=== PATIENT | female | born 1950 | race Caucasian/White ===

== ENCOUNTER 2021-02-21 15:59 | Emergency (ER) | payer MEDICARE, MEDICAID, SELFPAY ==
[2021-02-21 16:03] VITALS: BP 130/80; PULSE 87; RESP 20; TEMP 36.2; O2SAT 100; BMI 56.7
--- NOTE | 2021-02-21 16:15 | DI.RAD.S_ITS ---
PROCEDURE: XR SHOULDER RT MIN 2V INDICATIONS: pain. fell out of bed 12/27/20 TECHNIQUE: 3 views of the shoulder were acquired. COMPARISON: None. FINDINGS: Bones: No fractures or dislocations. No suspicious bony lesions. Visualized ribs appear intact. Mild periarticular osteophyte formation at the acromioclavicular and glenohumeral joints. Soft tissues: No suspicious soft tissue calcifications. IMPRESSION: Osteoarthritis. No acute fracture. No osseous lesion. If symptoms and/or clinical suspicion for pathology persist, further assessment with repeat, or advanced imaging (e.g., CT, MRI, or bone scan) may be helpful for further assessment. Dictated by: Francisco J Neil M.D. on 02/21/2021 at 16:26 Approved by: Francisco J Neil M.D. on 02/21/2021 at 16:26
--- NOTE | 2021-02-21 18:50 | ED.UPPEXIN ---
HPI - Extremity Injury (Upper) <Dev Romano PA-C - Last Filed: 02/21/21 20:04> General Chief Complaint: Extremity Injury, Upper Stated Complaint: RIGHT SHOULDER PAIN Time Seen by Provider: 02/21/21 18:50 Source: patient Mode of arrival: Family Vehicle Limitations: no limitations History of Present Illness HPI narrative: Josefa presents today with chief complaint of right shoulder pain that started 2 months ago when she had a fall out of her bed. She reports that she was getting out of her bed and her right foot got stuck in the sheets. She fell forward onto her rocking chair and ground. Her arm got stuck on the seat of the rocking chair and she fell all the way to the ground which yanked her shoulder up. She has been having significant pain and inability to do any overhead movements since this occurred. She denies any previous injuries to the area. She denies any chest pain, joint swelling, numbness or tingling in the arms, rash or any other acute concerns or complaints at this time. Related Data Allergies Allergy/AdvReac Type Severity Reaction Status Date / Time etodolac Allergy Intermediate Swelling Verified 02/21/21 16:14 of Lip/Tongue/Throat lisinopril AdvReac Cough Verified 02/21/21 16:14 Review of Systems <Dev Romano PA-C - Last Filed: 02/21/21 20:04> Review of Systems Narrative: As per HPI Patient History <Dev Romano PA-C - Last Filed: 02/21/21 20:04> Social History Smoking Status: Never smoker Smoking Status: Never smoker alcohol intake frequency: holidays/special occasions only Substance Use Type: does not use Exam <BRENDA Marcelo Last Filed: 02/21/21 20:04> Narrative Exam Narrative: Exam Narrative: Const General: cooperative, healthy appearing, comfortable, no acute distress, well developed and well groomed Nutritional Appearance: Elevated BMI Orientation: alert and oriented x3 HENMT Head: normal to inspection and atraumatic Ears: hearing grossly normal bilaterally Nose: external nose normal and nares normal Face and sinus: normal facial exam Neck Neck: normal visual inspection and supple Resp Effort & Inspection: normal respiratory effort, able to speak in complete sentences, no audible wheezes, not labored, no nasal flaring and no respiratory distress Neuro General: alert, oriented x3, gait normal, tone normal and moves all extremities Cognition: normal cognition Speech: speech normal Gait: normal gait Extremities Upper extremities exposed. Decreased range of motion of right shoulder limited to no overhead movements. She has full strength of the elbows/wrists bilaterally. No significant bony tenderness appreciated. No obvious soft tissue abnormalities noted. Radial pulses are equal bilaterally. Normal sensation in upper extremities. Psych Appearance: grossly normal and well kempt Mental Status: mental status grossly normal Speech and Movement: speech and movement normal Mood: congruent mood Affect: normal affect Initial Vital Signs Initial Vital Signs: Vital Signs Temperature 97.2 F L 02/21/21 16:03 Pulse Rate 87 02/21/21 16:03 Respiratory Rate 20 02/21/21 16:03 Blood Pressure 130/80 02/21/21 16:03 Pulse Oximetry 100 02/21/21 16:03 <Josephine Ponce DO - Last Filed: 02/27/21 00:36> Initial Vital Signs Initial Vital Signs: Vital Signs Temperature 97.2 F L 02/21/21 16:03 Pulse Rate 87 02/21/21 16:03 Respiratory Rate 20 02/21/21 16:03 Blood Pressure 130/80 02/21/21 16:03 Pulse Oximetry 100 02/21/21 16:03 Course <Dev Romano PA-C - Last Filed: 02/21/21 20:04> Orders Ordered: ED Orders 02/21/21 16:15 XR shoulder RT min 2V Stat Vital Signs Vital signs: Vital Signs - 8 hr 02/21/21 16:03 02/21/21 19:17 Temperature 97.2 F L Pulse Rate 87 86 Respiratory Rate 20 20 Blood Pressure 130/80 141/76 H Pulse Oximetry 100 97 <DO Archana Griffith Last Filed: 02/27/21 00:36> Orders Ordered: ED Orders 02/21/21 16:15 XR shoulder RT min 2V Stat Vital Signs Vital signs: Vital Signs - 8 hr 02/21/21 16:03 02/21/21 19:17 Temperature 97.2 F L Pulse Rate 87 86 Respiratory Rate 20 20 Blood Pressure 130/80 141/76 H Pulse Oximetry 100 97 MDM - Extremity Injury (Upper) <BRENDA Marcelo Last Filed: 02/21/21 20:04> MDM Narrative Medical decision making narrative: Patient has normal x-rays of the right shoulder. She has normal strength of bilateral elbows and wrists. No significant bony tenderness. I am concerned that she tore a ligament in her shoulder. I considered DVT of the upper extremity but there is no obvious physical examination evidence to suggest this. She also does not have any significant risk factors to suggest that this is taking place. Recommend follow-up with PCP with likely MRI needed. ER return precautions were discussed with the patient. Patient verbalizes understanding and agrees to plan and has no further concerns at this time. Thank you A [id number] system was used with the dictation of this note. Please disregard any spelling or grammatical errors. Discharge Plan Departure Patient Disposition: Home Clinical Impression: Chronic pain in right shoulder Instructions: DI for Shoulder Sprain Activity Restrictions/Additional Instructions: It was very nice to meet you this evening. Your x-ray is reassuring. However, I am concerned that you may have torn 1 of your ligaments in your shoulder. This can be diagnosed with an MRI. I do not think that this needs to take place here in the emergency department at this time so please follow-up with your primary care provider to be evaluated for this. You may also benefit from physical therapy to help improve strength in your right shoulder. Thank you Dev Romano PA-C <Josephine Ponce, DO - Last Filed: 02/27/21 00:36> Cosign ED Attending Ibeth Attestation: I was immediately available in the department for consultation. Documentation has been reviewed.
[2021-02-21 19:17] VITALS: BP 141/76; PULSE 86; RESP 20; O2SAT 97
== END 2021-02-21 19:22 | disposition home or self-care (01) ==
PROVIDERS: Emergency Provider Physician Assistant
DX: M25.511 Pain in right shoulder (principal)
CPT/HCPCS: 73030; 99283

== ENCOUNTER → 2021-04-28 12:39 | Outpatient (CLI) | payer MEDICARE, MEDICAID, SELFPAY ==
--- NOTE | 2021-04-28 | DI.MRI.S_ITS ---
PROCEDURE: MR SHOULDER RT WO CON INDICATIONS: Strain of unspecified muscle, fascia and tendon at TECHNIQUE: Noncontrast oblique coronal T2 fast spin echo with fat saturation, oblique sagittal T1 spin echo and T2 fast spin echo with fat saturation, axial T1 spin echo and T2 fast spin echo with fat saturation through the shoulder. COMPARISON: [facility], CR, XR SHOULDER RT MIN 2V, 02/21/2021, 16:12. FINDINGS: Image quality: Excellent. Rotator cuff: There is high-grade intrasubstance and likely bursal sided tearing of the supraspinatus tendon at the distal insertion with possible perforation of articular sided fibers. Findings are superimposed on severe tendinosis. There is mild to moderate infraspinatus tendinosis. The teres minor tendon is intact. There is full-thickness tearing of the subscapularis tendon with proximal retraction of the tendon stump by up to 1.8 cm. Some scarring in situ may be present. There is severe fatty infiltration of the subscapularis muscle. The remaining rotator cuff musculature is normal in bulk. Bones and bursae: No acute trabecular bone injury. Mild subchondral cystic changes are seen at the posterosuperior humeral head and the greater tuberosity near the rotator cuff tendon insertions. Moderate degenerative changes are seen at the acromioclavicular joint with marginal osteophyte formation and subchondral edema. A moderate subacromial/subdeltoid bursal effusion is present with moderate synovial hypertrophy. There is a small glenohumeral effusion. Fluid is also seen in the subcoracoid bursa. Capsule and soft tissues: No displaced labral tear is seen. There is a medial subluxation of the proximal biceps long head tendon, located anterior to the medial humeral head, with superimposed tendinosis and likely partial intrasubstance tearing. There is partial effacement of the fat in the rotator interval. The glenohumeral ligaments are grossly intact. IMPRESSION: 1. High-grade intrasubstance and bursal sided tearing of the supraspinatus tendon at the distal insertion with suspected full-thickness perforation. Findings are superimposed on severe tendinosis. 2. Full-thickness tearing of the subscapularis tendon from its distal insertion with proximal tendon retraction measuring up to 1.8 cm. There is severe fatty infiltration of the subscapularis muscle. 3. Medial subluxation of the biceps long head tendon with tendinosis and suspected partial intrasubstance tearing. 4. Moderate acromioclavicular osteoarthrosis. 5. Moderate subacromial/subdeltoid bursal effusion/bursitis with moderate bursal thickening and synovial hypertrophy. A glenohumeral effusion is also seen communicating with the subcoracoid bursa. Dictated by: Miller Hernandez M.D. on 04/28/2021 at 15:59 Approved by: Miller Hernandez M.D. on 04/28/2021 at 16:08
== END ==
PROVIDERS: Referring Provider Orthopaedic Surgery; Visit Provider Orthopaedic Surgery
DX: S46.011A Strain of muscle(s) and tendon(s) of the rotator cuff of right shoulder, initial encounter (principal); M19.011 Primary osteoarthritis, right shoulder; M75.51 Bursitis of right shoulder; X58.XXXA Exposure to other specified factors, initial encounter
CPT/HCPCS: 73221

== ENCOUNTER → 2021-06-30 11:10 | Outpatient (CLI) | payer MEDICARE, SELFPAY ==
[2021-06-30 13:36] LABS: COVID19 -Nasal RAPID Negative (Negative)
== END ==
PROVIDERS: Visit Provider Family Medicine Sleep Medicine
DX: Z20.822 Contact with and (suspected) exposure to COVID-19 (principal)
CPT/HCPCS: 87635; C9803

== ENCOUNTER 2021-07-02 09:23 | Day surgery (SDC) | payer MEDICARE, MEDICAID, SELFPAY ==
[2021-07-02] VITALS (11 sets, daily range): BP systolic 105–154; BP diastolic 63–108; PULSE 65–98; RESP 10–19; TEMP 36.1–36.6; O2SAT 91–99; BMI 53.1
[2021-07-02] MEDS: LACTATED RINGERS 1,000 ML 42 ML IV (11:08)
--- NOTE | 2021-07-02 11:47 | P.OP.PRE_ITS ---
Pre-operative Note COVID-19 COVID-19 status: Negative Result date/Date tested (Pos, Neg/Pending): 06/30/21 Criteria for continued procedure: Expected advancement of disease process, Possibility delay results in more complex future surgery or treatment, Increased loss of function, Continuing or worsening of significant or severe pain and Non- surgical alternatives not available or appropriate per current SOC Interval Note History & Physical reviewed/Exam performed by Physician: Yes Changes to H&P: No
--- NOTE | 2021-07-02 12:25 | SUR.PREOP ---
Block start time [1220] . Monitoring initiated and maintained throughout procedure. Medications given by anesthesiologist instructions. Patient remained stable throughout procedure, no adverse reactions noted. Block end time [1227].
[2021-07-02] MEDS: CEFAZOLIN 2 GM/20 ML SYRINGE IV (12:50)
--- NOTE | 2021-07-02 13:02 | SUR.OPER ---
Lateral on padded OR bed with mendoza bag positioner, head on pillow, gel axillary roll in place, bottom leg bent with gel pad under knee to foot, upper leg straight and supported with pillows. Operative arm secured in shoulder positioning suspension device. non-operative arm secured on padded arm board. Safety belt at hip, tape over blanket securing lower legs.
[2021-07-02] MEDS: BUPIVACAINE 0.5% (PF) 30 ML, EPINEPHrine 0.15 MG INJ (13:29)
[2021-07-02] MEDS: EPINEPHrine 1 MG/ML IRR (13:38)
--- NOTE | 2021-07-02 13:46 | SUR.OPER ---
upper dentures removed in OR, placed in container and sent to PACU with patient at the end of the procedure
--- NOTE | 2021-07-02 14:24 | P.OP_ITS ---
Operative Date/Time/Diagnoses Date of procedure: 07/02/21 Time of procedure: 14:24 Pre-op diagnosis: Right shoulder rotator cuff tear Post-op diagnosis: same Procedure & Clinicians Procedure: 1. Arthroscopic rotator cuff repair of subscapularis and supraspinatus tendons 2. Arthroscopic release of biceps tendon Same procedure as scheduled: Yes Indications: The patient is a 70-year-old woman who has had right shoulder pain that has not responded to non operative measures. Her MRI appears to show subscapularis tear and high-grade partial-thickness tear of the supraspinatus tendon. She has agreed to surgery after discussion the risks benefits and alternatives. Risks discussed included but were not limited to: Failure to improve, stiffness, infection, nerve damage, deep venous thrombosis, pulmonary embolism, stroke, myocardial infarction, permanent paralysis and . Surgeon: Jose Carlos Mcgovern Pastry Supervisor: Steffi Gramajo Click Yes if Unassisted: No Anesthesia Type: General, Peripheral nerve block and Local Operative Notes Findings: 1. Minimal degenerative change of glenohumeral cartilage 2. Minimal degenerative change of glenohumeral labrum 3. Inflammation but no tearing of the inferior or middle glenohumeral ligaments with tearing of the superior glenohumeral ligament. 4. Tearing of the upper portion of the subscapularis tendon 5. High-grade bursal surface tearing of the supraspinatus tendon 6. Intact infraspinatus 7. Dislocation of the biceps tendon from the intertubercular groove with biceps tendinitis 8. Normal axillary pouch 9. Bursal surface rotator cuff tear nearly full-thickness with extensive fraying of the supraspinatus new 10. Type 2 acromion with impingement lesion which was left intact. 11. Acromioclavicular joint not visualized 12. Exam under anesthesia notable for pathologic laxity. Closure Type: primary Specimen(s): none sent Prosthetic devices, grafts, tissues, transplants, or devices: Implants used in this procedure manufactured by the [employer] and included 1 4.75 mm diameter swivel lock anchor and 1 5.5 mm diameter corkscrew anchor Applied: implant(s) Estimated Blood Loss (mL): 20 Blood products transfused: none Procedure in detail: Patient was seen in the preoperative area where she identified the right shoulder as the operative site and this was marked with my initials. She underwent induction of an interscalene block and then was taken to the operating room and placed on the operating room table in a supine position after undergoing a general anesthetic on her gurney. She was positioned in the left lateral decubitus position with an axillary roll and padding for all pressure points. She was stabilized in this position using the mendoza bag. The right arm was prepared from the fingertips the base neck with ChloraPrep and draped through sterile drapes. Prior to prepping and draping a time buyer-out was performed and she did receive preoperative antibiotics. The subcutaneous landmarks were outlined on the skin with a marking pen a posterior portal created for the arthroscope. Diagnostic arthroscopy ensued with the results given above. An anterior superolateral portal was created to evaluate the subscapularis. Initially the shaver and arthroscopic scissors were used to cut the biceps as it was dislocated and was interfering with the potential subscapul opal repair. Small amount of rotator interval tissue was debrided to allowed access to the lesser tuberosity. This was prepared to bleeding bone. An awl was used to create the pathway for the anchor through an anterior inferior portal. An [employer] suture tape was placed through the upper portion of the subscapularis and it was reduced to the knotless SwiveLock anchor which was advanced to complete the repair. The arthroscope was then withdrawn from the glenohumeral joint and placed in the subacromial bursa. A bursectomy was performed for visualization. There was extensive fraying of the bursal cuff. This was debrided to a stable base. The cuff was palpated, and a very thin area found at the anterior portion the supraspinatus. This was completed at the area of the high-grade partial-thickness tear. The greater tuberosity was prepared to bleeding bone. An anchor was placed. The 2 sutures in the anchor were then passed in simple suture fashion and tied to complete the rotator cuff repair. At this point all arthroscopic equipment was removed. The wounds were closed with 4-0 Monocryl and Steri-Strips. The subcutaneous tissues and the subacromial bursa were each injected with 10 mL 0.5% Marcaine for postoperative pain control. Dressings of Steri-Strips, sterile 4x4s, an ABD and adhesive dressing were applied. The patient's arm was placed in a sling and she was transported to the recovery room in good condition having tolerated the procedure well. Complications: none Post-operative Condition: stable Disposition: PACU Plan for aftercare: Patient will be maintained on a standard subscapularis repair protocol with limitations on external rotation and abduction. She will have passive range of motion for 6 weeks. She will be discharged today.
== END 2021-07-02 15:55 | disposition home or self-care (01) ==
PROVIDERS: PCP Physician Assistant Medical; Referring Provider Orthopaedic Surgery; Visit Provider Orthopaedic Surgery
PROC: (CPT 29827; principal; 2021-07-02 11:15)
DX: S46.011A Strain of muscle(s) and tendon(s) of the rotator cuff of right shoulder, initial encounter (principal); W01.0XXA Fall on same level from slipping, tripping and stumbling without subsequent striking against object, initial encounter; M25.811 Other specified joint disorders, right shoulder; E11.9 Type 2 diabetes mellitus without complications; Z79.84 Long term (current) use of oral hypoglycemic drugs; I11.0 Hypertensive heart disease with heart failure; I50.9 Heart failure, unspecified
CPT/HCPCS: 29827; 29823; 64450; 82962; J0171; J0690; J2250; J2405; J2704; J3010

== ENCOUNTER → 2023-06-21 07:58 | Outpatient (CLI) | payer MEDICARE, MEDICAID, SELFPAY ==
--- NOTE | 2023-06-21 08:00 | DI.RAD.S_ITS ---
PROCEDURE: XR LUMBAR SPINE MIN 4V INDICATIONS: LOW BACK PAIN TECHNIQUE: 5 views of the lumbar spine were acquired, including bilateral oblique views. COMPARISON: None. FINDINGS: Bones: 5 nonrib-bearing vertebrae are present. There is normal bony alignment. No vertebral body compression fractures. No suspicious bony lesions. Disc space narrowing hypertrophic facet joints noted particularly lower lumbar spine. Trace grade 1 anterior spondylolisthesis L4-5. Soft tissues: Overlying bowel gas pattern is normal. No suspicious soft tissue calcifications. Oblique images: No pars defects. 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 on 06/21/2023 at 18:10
== END ==
PROVIDERS: PCP Physician Assistant Medical; Referring Provider Anesthesiology; Visit Provider Anesthesiology
DX: M51.16 Intervertebral disc disorders with radiculopathy, lumbar region (principal); M47.26 Other spondylosis with radiculopathy, lumbar region; M43.16 Spondylolisthesis, lumbar region; M48.061 Spinal stenosis, lumbar region without neurogenic claudication; M54.50 Low back pain, unspecified; R10.9 Unspecified abdominal pain
CPT/HCPCS: 72110; 99214

== ENCOUNTER 2023-07-07 11:40 | Outpatient (CLI) | payer MEDICARE, MEDICAID, SELFPAY ==
[2023-07-07] VITALS (8 sets, daily range): BP systolic 124–169; BP diastolic 53–96; PULSE 103–124; RESP 15–20; TEMP 36.1; O2SAT 95–100
--- NOTE | 2023-07-07 13:00 | DI.RAD.S_ITS ---
PROCEDURE: PAIN L INTERLAMINAR/CAUDAL INJ INDICATIONS: RADICULOPATHY COMPARISON: None. FINDINGS: Fluoroscopic spot filming was performed to verify placement of spinal needles at the L4-5 level(s), as labeled on the films. Appropriate location(s) of the needle tip(s) was confirmed by injection of iodinated contrast. IMPRESSION: Intra procedural examination demonstrating appropriate positions of the needles. Dictated by: Akin Champagne M.D. on 07/07/2023 at 14:51 Approved by: Akin Champagne M.D. on 07/07/2023 at 14:52
[2023-07-07] MEDS: MIDAZOLAM 2 MG/2 ML VIAL 1 MG IV (13:06)
[2023-07-07] MEDS: iopamidoL 15 ML VIAL 3 ML INJ (13:10)
[2023-07-07] MEDS: DEXAMETHASONE 10 MG/ML VIAL INJ (13:10)
--- NOTE | 2023-07-07 15:08 | P.PCN_ITS ---
Date/Time/Diagnoses Date of procedure: 07/07/23 Time of procedure: 13:00 Procedure Notes Physician: Dustin Spencer Total Fluoroscopy time (seconds): 17 Total sedation minutes: 10 Procedure in detail & Post-procedure care: L4-5 Interlaminar Epidural Steroid Injection Indications: Josefa is presenting for treatment of lumbar radiculopathy with low back and leg pain. Preoperative diagnosis: Lumbar radiculopathy Postoperative diagnosis: Same Focused Examination: Ax3 Mood and affect are normal Vital Signs: VSS Fingerstick glucose: 103 ASA: 3 Consent: Following review of allergies and potential side effects/complications, including, but not necessarily limited to, infection, allergic reaction, local tissue breakdown, stroke, temporary or permanent nerve injury, paralysis, and possible , the patient indicated that they understood and agreed to proceed.? An informed consent document was signed by the patient, witnessed by a nurse and placed in the patient's chart.? Additionally, other treatment options including medications and physical therapy were reviewed with the patient. All questions were answered. Site was then marked. Patient has stopped Eliquis 3 days prior to injection. She was instructed to resume this medication 24 hours after injection. Anesthesia: After review of previous anesthetic history and IV conscious sedation, the patient was deemed safe to proceed with today's procedure with IV conscious sedation. IV sedation was accomplished with midazolam 1 mg administered by the RN after order by Dr. Spencer. Sedation was titrated to patient comfort during the course of the procedure. Patient remained responsive to all verbal commands. Position: Prone Monitoring: NIBP, Pulse oximetry, 3 lead EKG Needle used: 18 ga, 5? Tuohy Contrast: Isovue 300M Injectate: Dexamethasone 10 mg with 1% lidocaine 2 mL Technique: The skin was prepped with chloraprep and then draped in a sterile fashion. Time out was performed as per protocol. Oxygen applied via NC. Skin and subcutaneous structures of the needle entry site was then infiltrated with 3 mL of lidocaine 1%. Under AP, lateral and contralateral oblique fluoroscopic control, the Tuohy needle was guided into the L4-5 epidural space. The space was accessed with loss of resistance technique. Isovue 300M was then injected and the spread was consistent with the epidural space. There was no evidence for intravascular or intrathecal uptake. After negative aspiration, the above- mentioned injectate was then slowly administered and the needle withdrawn. The patient expressed no unusual discomfort or paresthesias during the injection. Band-Aids applied to injection sites. EBL: less than 1 ml Complications: None Post Procedure: Patient was taken to the recovery and monitored. The patient was provided a Pain Log to continue to record the patient's response to the target- specific procedure prior to the patient's follow-up visit with the referring physician. Patient was stable upon discharge. Detailed post procedure instructions were provided. Patient was asked to call in the event of worsening pain, fever, weakness, numbness or bladder or bowel incontinence.
== END 2023-07-07 13:40 | disposition home or self-care (01) ==
PROVIDERS: PCP Physician Assistant Medical; Referring Provider Anesthesiology; Visit Provider Anesthesiology
DX: M54.16 Radiculopathy, lumbar region (principal)
CPT/HCPCS: 62323; 82962; 99152; J1100; J2250

== ENCOUNTER 2023-09-29 10:26 | Outpatient (CLI) | payer MEDICARE, MEDICAID, SELFPAY ==
[2023-09-29] VITALS (8 sets, daily range): BP systolic 118–164; BP diastolic 59–123; PULSE 96–117; RESP 17–21; TEMP 36.2; O2SAT 96–99
--- NOTE | 2023-09-29 | DI.RAD.S_ITS ---
PROCEDURE: PAIN L/S FACET INJ/BLK 1ST BEATRICE INDICATIONS: LUMBAR SPONDYLOSIS COMPARISON: [facility], CR, XR LUMBAR SPINE MIN 4V, 06/21/2023, 8:02. [facility], RG, MRI L-SPINE W/O CONTRAST, 05/12/2023, 13:54. FINDINGS: Fluoroscopic spot filming was performed to verify placement of spinal needles at the L3, L4 and L5 level(s), as labeled on the films. Appropriate location(s) of the needle tip(s) was confirmed by injection of iodinated contrast. IMPRESSION: Fluoroscopy for pain management. Dictated by: Mary Sumner M.D. on 09/29/2023 at 17:08 Approved by: Mary Sumner M.D. on 09/29/2023 at 17:08
[2023-09-29] MEDS: MIDAZOLAM 2 MG/2 ML VIAL 1 MG IV (11:45)
[2023-09-29] MEDS: BUPIVACAINE 0.5% (PF) 10 ML VIAL 5 ML INJ (11:50)
[2023-09-29] MEDS: iopamidoL 15 ML VIAL 3 ML INJ (11:51)
--- NOTE | 2023-09-29 12:13 | P.PCN_ITS ---
Date/Time/Diagnoses Date of procedure: 09/29/23 Time of procedure: 11:30 Procedure Notes Physician: Dustin Spencer Total Fluoroscopy time (seconds): 24 Total sedation minutes: 16 Procedure in detail & Post-procedure care: Bilateral L3, 4, 5 Lumbar Medial Branch Blocks Indications: Josefa is presenting for treatment of lumbar spondylosis with low back pain. Preoperative diagnosis: Lumbar spondylosis Postoperative diagnosis: Same Pre-procedure History: F Patient demonstrates today moderate to severe non- radicular back pain without neurologic deficit aggravated by hyperextension yes Back pain greater than leg pain? F yes Patient today has tenderness over the suspected joint(s) yes History of post-traumatic injury? no Hypertrophic arthropathy F yes Back pain associated with suspected motion segment instability, hypermobility or pseudoarthrosis no Focused Examination: Ax3 Mood and affect are normal Vital Signs: VSS ASA: 3 Consent: Following review of allergies and potential side effects/complications, including, but not necessarily limited to, infection, allergic reaction, local tissue breakdown, stroke, temporary or permanent nerve injury, paralysis, and possible , the patient indicated that they understood and agreed to proceed.? An informed consent document was signed by the patient, witnessed by a nurse and placed in the patient's chart.? Additionally, other treatment options including medications and physical therapy were reviewed with the patient. All questions were answered. Site was then marked. Anesthesia: After review of previous anesthetic history and IV conscious sedation, the patient was deemed safe to proceed with today's procedure with IV conscious sedation. IV sedation was accomplished with midazolam 1 mg administered by the RN after order by Dr. Spencer. Sedation was titrated to patient comfort during the course of the procedure. Patient remained responsive to all verbal commands. Position: Prone Monitoring: NIBP, Pulse oximetry, 3 lead EKG Needle used: 22 ga, 5 inch spinal needle Contrast: Isovue 300M Injectate: 0.5% bupivacaine 1 mL per site Procedure: The patient was brought into the procedure room and positioned into the prone position. Skin was prepped with a Chloraprep solution, allowed to air dry, and then draped in sterile fashion.? The right L4-5 and L5-S1 facet joints were visually identified with fluoroscopy. Lidocaine 1% was used to anesthetize the skin over each target destination with a 25ga needle. A 22 ga, 5 inch spinal needle was advanced to the location of the medial branch at the junction of the superior articular process and the transverse process at L4,5 and the base of the SAP of the sacrum using intermittent fluoroscopy in the AP view. Isovue 300M contrast 0.2ml was injected at each level outlining the medial borders for each level and the base of the SAP of the sacrum in the AP and lateral views. There was no evidence of vascular or intrathecal uptake. The above injectate was slowly injected at each target destination. The left L4-5 and L5-S1 facet joints were visually identified with fluoroscopy. Lidocaine 1% was used to anesthetize the skin over each target destination with a 25ga needle. A 22 ga, 5 inch spinal needle was advanced to the location of the medial branch at the junction of the superior articular process and the transverse process at L4,5 and the base of the SAP of the sacrum using intermittent fluoroscopy in the AP view. Isovue 300M contrast 0.2ml was injected at each level outlining the medial borders for each level and the base of the SAP of the sacrum in the AP and lateral views. There was no evidence of vascular or intrathecal uptake. The above injectate was slowly injected at each target destination. At the end of the procedure the needles were withdrawn and Band- Aids were applied for a dressing. Post Procedure: Patient was taken to the recovery and monitored. The patient was provided a Pain Log to continue to record the patient's response to the target- specific procedure prior to the patient's follow-up visit with the referring physician. Patient was stable upon discharge. Detailed post procedure instructions were provided. Patient was asked to call in the event of worsening pain, fever, weakness, numbness or bladder or bowel incontinence. Based on the medial branches blocked today, if the patient meets insurance criteria for radiofrequency, the treatment should result in the denervation of the bilateral L4-5 and L5-S1 facet joint nerves. We would expect to denervate a total of 4 facets during the radiofrequency ablation.
--- NOTE | 2023-09-29 12:25 | PC.NURSE ---
Patient in Afib RVR before, during and after injection. Dr. Spencer aware. HR variable 100-125 non sustaining. Average rate 115 consistently. Asymptomatic. Reports she took her metoprolol this morning. Encouraged to monitor her HR and follow up with her PCP. She reports having an appointment on the but will monitor it at home over the next couple days.
== END 2023-09-29 12:27 | disposition home or self-care (01) ==
LOC: RAD 10:27
PROVIDERS: PCP Physician Assistant Medical; Referring Provider Anesthesiology; Visit Provider Anesthesiology
DX: M47.816 Spondylosis without myelopathy or radiculopathy, lumbar region (principal)
CPT/HCPCS: 64493; 64494; 82962; 99152; J2250

== ENCOUNTER 2023-11-03 06:39 | Outpatient (CLI) | payer MEDICARE, MEDICAID, SELFPAY ==
[2023-11-03] VITALS (8 sets, daily range): BP systolic 117–154; BP diastolic 60–86; PULSE 74–96; RESP 13–20; TEMP 36.1; O2SAT 96–99
--- NOTE | 2023-11-03 08:00 | DI.RAD.S_ITS ---
PROCEDURE: PAIN L/S FACET INJ/BLK 1ST BEATRICE INDICATIONS: SPONDYLOSIS COMPARISON: [facility], , PAIN L/S FACET INJ/BLK 1ST BEATRICE, 09/29/2023, 11:47. FINDINGS: Fluoroscopic spot filming was performed to verify placement of spinal needles at the L3, L4 and L5 level(s), as labeled on the films. Appropriate location(s) of the needle tip(s) was confirmed by injection of iodinated contrast. IMPRESSION: Fluoro guidance was provided intraoperatively for bilateral L3, L4, L5 medial branch block performed by ordering physician. Dictated by: Melvin Castillo M.D. on 11/03/2023 at 13:29 Approved by: Melvin Castillo M.D. on 11/03/2023 at 13:39
[2023-11-03] MEDS: MIDAZOLAM 2 MG/2 ML VIAL 1 MG IV (08:02)
[2023-11-03] MEDS: LIDOCAINE 2% INJ MDV 20ML 5 ML INJ (08:08)
[2023-11-03] MEDS: iopamidoL 15 ML VIAL 3 ML INJ (08:09)
--- NOTE | 2023-11-03 08:23 | P.PCN_ITS ---
Date/Time/Diagnoses Date of procedure: 11/03/23 Time of procedure: 08:00 Procedure Notes Physician: Dustin Spencer Total Fluoroscopy time (seconds): 23 Total sedation minutes: 17 Procedure in detail & Post-procedure care: Bilateral L3, 4, 5 Lumbar Medial Branch Blocks Indications: Josefa is presenting for treatment of lumbar spondylosis with low back pain. Preoperative diagnosis: Lumbar spondylosis Postoperative diagnosis: Same Pre-procedure History: F Patient demonstrates today moderate to severe non- radicular back pain without neurologic deficit aggravated by hyperextension yes Back pain greater than leg pain? F yes Patient today has tenderness over the suspected joint(s) yes History of post-traumatic injury? no Hypertrophic arthropathy F yes Back pain associated with suspected motion segment instability, hypermobility or pseudoarthrosis no Focused Examination: Ax3 Mood and affect are normal Vital Signs: VSS ASA: 3 Consent: Following review of allergies and potential side effects/complications, including, but not necessarily limited to, infection, allergic reaction, local tissue breakdown, stroke, temporary or permanent nerve injury, paralysis, and possible , the patient indicated that they understood and agreed to proceed.? An informed consent document was signed by the patient, witnessed by a nurse and placed in the patient's chart.? Additionally, other treatment options including medications and physical therapy were reviewed with the patient. All questions were answered. Site was then marked. Anesthesia: After review of previous anesthetic history and IV conscious sedation, the patient was deemed safe to proceed with today's procedure with IV conscious sedation. IV sedation was accomplished with midazolam 1 mg administered by the RN after order by Dr. Spencer. Sedation was titrated to patient comfort during the course of the procedure. Patient remained responsive to all verbal commands. Position: Prone Monitoring: NIBP, Pulse oximetry, 3 lead EKG Needle used: 22 ga, 5 inch spinal needle Contrast: Isovue 300M Injectate: 2% lidocaine 1 mL per site Procedure: The patient was brought into the procedure room and positioned into the prone position. Skin was prepped with a Chloraprep solution, allowed to air dry, and then draped in sterile fashion.? The right L4-5 and L5-S1 facet joints were visually identified with fluoroscopy. Lidocaine 1% was used to anesthetize the skin over each target destination with a 25ga needle. A 22 ga, 5 inch spinal needle was advanced to the location of the medial branch at the junction of the superior articular process and the transverse process at L4,5 and the base of the SAP of the sacrum using intermittent fluoroscopy in the AP view. Isovue 300M contrast 0.2ml was injected at each level outlining the medial borders for each level and the base of the SAP of the sacrum in the AP and lateral views. There was no evidence of vascular or intrathecal uptake. The above injectate was slowly injected at each target destination. The left L4-5 and L5-S1 facet joints were visually identified with fluoroscopy. Lidocaine 1% was used to anesthetize the skin over each target destination with a 25ga needle. A 22 ga, 5 inch spinal needle was advanced to the location of the medial branch at the junction of the superior articular process and the transverse process at L4,5 and the base of the SAP of the sacrum using intermittent fluoroscopy in the AP view. Isovue 300M contrast 0.2ml was injected at each level outlining the medial borders for each level and the base of the SAP of the sacrum in the AP and lateral views. There was no evidence of vascular or intrathecal uptake. The above injectate was slowly injected at each target destination. At the end of the procedure the needles were withdrawn and Band- Aids were applied for a dressing. Post Procedure: Patient was taken to the recovery and monitored. The patient was provided a Pain Log to continue to record the patient's response to the target- specific procedure prior to the patient's follow-up visit with the referring physician. Patient was stable upon discharge. Detailed post procedure instructions were provided. Patient was asked to call in the event of worsening pain, fever, weakness, numbness or bladder or bowel incontinence. Based on the medial branches blocked today, if the patient meets insurance criteria for radiofrequency, the treatment should result in the denervation of the bilateral L4-5 and L5-S1 facet joint nerves. We would expect to denervate a total of 4 facets during the radiofrequency ablation.
== END 2023-11-03 08:40 | disposition home or self-care (01) ==
LOC: RAD 06:40
PROVIDERS: PCP Physician Assistant Medical; Referring Provider Anesthesiology; Visit Provider Anesthesiology
DX: M47.816 Spondylosis without myelopathy or radiculopathy, lumbar region (principal)
CPT/HCPCS: 64493; 64494; 99152; J2250

== ENCOUNTER → 2023-12-17 11:59 | Outpatient (CLI) | payer MEDICARE, MEDICAID, SELFPAY ==
--- NOTE | 2023-12-17 | DI.ECHO.S_ITS ---
[facility] : : [address] 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 However no echo contrast was utilized. 1. The left ventricular contractility appears to be normal. Estimated ejection fraction is greater than 55% without obvious segmental wall motion abnormalities. Mild concentric LVH. Unable to comment on diastolic function due to presence of atrial fibrillation. 2. The left ventricular contractility appears to be preserved. 3. There is biatrial enlargement. The right and left ventricular cavities appear to be of normal size. 4. Moderate fibrocalcific changes noted in the aortic valve with mean gradient of 23 mmHg. Dimensionless index of 0.24 suggestive of possible low-flow low gradient severe aortic valvular stenosis. 5. No obvious intracardiac shunts. 6. No obvious intracardiac masses nor thrombi. 7. No hemodynamically significant pericardial effusion. Conclusion: Grossly normal biventricular systolic function with possible severe low-flow low gradient aortic valvular stenosis. Procedure: A two-dimensional transthoracic echocardiogram with color flow and Doppler was performed. The study quality was technically difficult. There is no prior echocardiogram noted for this patient. The patient was in atrial fibrillation with heart rates between 62-90 bpm during the exam. Left Ventricle: The left ventricle is normal in size. Left ventricular wall thickness is mildly increased. The ejection fraction is estimated to be 55- 60%. Right Ventricle: The right ventricle is normal size. Right ventricular systolic function is mildly reduced. Atria: The left atrium is severely dilated. The right atrium is mildly dilated. The interatrial septum grossly appears intact with no obvious evidence for an atrial septal defect. Mitral Valve: The mitral valve is normal. There is no mitral valve stenosis. There is mild mitral regurgitation. Aortic Valve: The aortic valve is trileaflet. The aortic valve is mildly calcified. The peak aortic velocity is 3.00 m/sec. The aortic valve mean gradient is 23.4 mmHg. No aortic regurgitation is present. Tricuspid Valve: The tricuspid valve is normal. There is no tricuspid stenosis. There is mild tricuspid regurgitation. The right ventricular systolic pressure is estimated to be at least 41.5 mmHg based on an estimated right atrial pressure of 8 mm Hg. Pulmonic Valve: The pulmonic valve is not well visualized. There is no pulmonic valvular stenosis. There is no pulmonic valvular regurgitation. Great Vessels: The aortic root is normal size. The dimensions of the ascending aorta are normal. The IVC is dilated (diameter is greater than 2.1 cm) yet it collapses greater than 50% with a sniff. This suggests a right atrial pressure of 8 mm Hg. Pericardium/ Pleura There is no pericardial effusion. There is no pleural effusion. MMode/2D Measurements & Calculations LVIDd: 4.6 cm LVOT diam: 1.9 cm LVIDs: 3.5 cm Ao root diam: 2.7 cm FS: 23.3 % asc Aorta Diam: 3.3 cm IVSd: 1.1 cm LVPWd: 1.3 cm LV urbina. diameter/BSA (cm/m^2): 2.0 LV sys. diameter/BSA (cm/m^2): 1.5 LA A2 area: 27.1 cm2 RA long axis: 4.6 cm LA A4 area: 40.2 cm2 RA area: 17.4 cm2 LA length (vol): 7.5 cm RA vol: 56.5 ml LA vol: 123.7 ml RA : 24.2 ml/m2 LA vol index: 53.1 ml/m2 IVC diam: 2.3 cm RVD1 (basal): 3.7 cm RVD2 (mid): 3.1 cm TAPSE: 1.6 cm Doppler Measurements & Calculations Ao V2 max: 300.3 cm/sec LVOT Max Isak: 75.2 cm/sec Ao V2 mean: 232.3 cm/sec LV V1 max P.3 mmHg Ao max P.1 mmHg LV V1 VTI: 17.8 cm Ao mean P.4 mmHg NAHOMI(I,D): 0.71 cm2 Ao V2 VTI: 74.3 cm NAHOMI(V,D): 0.74 cm2 sev ratio: 0.24 NAHOMI indexed to BSA (cm^2/m^2): 0.30 MV E max isak: 131.1 cm/sec TR max isak: 289.2 cm/sec MV A max isak: 18.6 cm/sec TR max P.5 mmHg MV E/A: 7.0 PA V2 max: 93.3 cm/sec Med Peak E' Isak: 9.1 cm/sec PA V2 mean: 59.5 cm/sec E/E' med: 14.4 PA mean P.6 mmHg Lat Peak E' Isak: 7.4 cm/sec PA pr(Accel): 56.2 mmHg E/E' lat: 17.7 E/e' average: 16.0 MV dec time: 0.16 sec SV(LVOT): 52.8 ml Reading Physician:
== END ==
PROVIDERS: PCP Physician Assistant Medical; Referring Provider Internal Medicine; Visit Provider Internal Medicine
DX: I50.42 Chronic combined systolic (congestive) and diastolic (congestive) heart failure (principal); I08.1 Rheumatic disorders of both mitral and tricuspid valves
CPT/HCPCS: 93306

== ENCOUNTER 2024-01-05 10:02 | Outpatient (CLI) | payer MEDICARE, MEDICAID, SELFPAY ==
[2024-01-05] VITALS (10 sets, daily range): BP systolic 121–176; BP diastolic 65–98; PULSE 76–93; RESP 15–19; O2SAT 97–99
[2024-01-05] MEDS: MIDAZOLAM 2 MG/2 ML VIAL 1 MG IV (10:49)
[2024-01-05] MEDS: BUPIVACAINE 0.5% (PF) 10 ML VIAL INJ (10:54)
[2024-01-05] MEDS: LIDOCAINE 2% INJ MDV 20ML 10 ML INJ (10:54)
[2024-01-05] MEDS: LIDOCAINE 1% 20 ML INJ (10:54)
[2024-01-05] MEDS: DEXAMETHASONE 10 MG/ML VIAL INJ (10:54)
--- NOTE | 2024-01-05 11:00 | DI.RAD.S_ITS ---
PROCEDURE: PAIN L/S MED/LAT N RFA BILAT INDICATIONS: SPONYLOSIS COMPARISON: None. FINDINGS: Fluoroscopic spot filming was performed to verify placement of spinal needles at the bilateral L3, L4 and L5 level(s), as labeled on the films. Appropriate location(s) of the needle tip(s) was confirmed by injection of iodinated contrast. IMPRESSION: Spinal needles at the bilateral L3, L4 and L5 levels. Please see procedure report for details. Dictated by: Jami Bonner M.D. on 01/05/2024 at 16:49 Approved by: Jami Bonner M.D. on 01/05/2024 at 16:50
--- NOTE | 2024-01-05 11:33 | P.PCN_ITS ---
Date/Time/Diagnoses Date of procedure: 01/05/24 Time of procedure: 11:00 Procedure Notes Physician: Dustin Spencer Total Fluoroscopy time (seconds): 30 Total sedation minutes: 34 Procedure in detail & Post-procedure care: Bilateral L3, 4, 5 Lumbar Medial Branch Radio Frequency Ablation Indications: Josefa presents for treatment of lumbar spondylosis with low back pain. Preoperative diagnosis: Lumbar spondylosis Postoperative diagnosis: Same Focused Examination: Ax3 Mood and affect are normal Vital Signs: VSS ASA: 3 Consent: Following review of allergies and potential side effects/complications, including, but not necessarily limited to, infection, allergic reaction, local tissue breakdown, stroke, temporary or permanent nerve injury, paralysis, and possible , the patient indicated that they understood and agreed to proceed.? An informed consent document was signed by the patient, witnessed by a nurse and placed in the patient's chart.? Additionally, other treatment options including medications and physical therapy were reviewed with the patient. All questions were answered. Site was then marked. Position: Prone Monitoring: NIBP, Pulse oximetry, 3 lead EKG Needle used: 18 guage, 100 mm, 10 mm active tip Anesthesia: Local with IV sedation. After review of previous anesthetic history and IV conscious sedation, the patient was deemed safe to proceed with today's procedure with IV conscious sedation. IV sedation was accomplished with midazolam 1 mg administered by the RN after order by Dr. Spencer. Sedation was t itrated to patient comfort during the course of the procedure. Patient remained responsive to all verbal commands. Procedure: The patient was brought into the procedure room and positioned into the prone position. Skin was prepped with a Chloraprep solution, allowed to air dry, and then draped in sterile fashion.? The right L4-5 and L5-S1 facet joints were visually identified with fluoroscopy. Lidocaine 1% was used to anesthetize the skin over each target destination with a 25ga needle. An 18 ga, 100 mm RFA needle with a 10 mm active tip was advanced to the location of the medial branch at the junction of the superior articular process and the transverse process at L4,5 and the base of the SAP of the sacrum using intermittent fluoroscopy in the oblique view with caudal tilt. AP and lateral radiographs were taken to confirm proper needle placement. No paresthesias were noted. The stylet was removed and the radiofrequency probe was inserted through the cannula. Each level was individually tested.? Motor stimulation up to 2V elicited multifidus twitching in the lumbar spine. There was no motor stimulation in the lower extremities. After negative aspiration, 1ml of 2% lidocaine was injected at each of the levels and radiofrequency denervation carried out using 80 degrees Celsius for 90 seconds. The needles were then rotated 90 degrees and a second ablation was performed at 80 degrees Celsius for 90 seconds. Next, the left L4-5 and L5-S1 facet joints were visually identified with fluoroscopy. Lidocaine 1% was used to anesthetize the skin over each target destination with a 25ga needle. An 18 ga, 100 mm RFA needle with a 10 mm active tip was advanced to the location of the medial branch at the junction of the superior articular process and the transverse process at L4,5 and the base of the SAP of the sacrum using intermittent fluoroscopy in the oblique view with caudal tilt. AP and lateral radiographs were taken to confirm proper needle placement. No paresthesias were noted. The stylet was removed and the radiofrequency probe was inserted through the cannula. Each level was individually tested. Motor stimulation up to 2V elicited multifidus twitching in the lumbar spine. There was no motor stimulation in the lower extremities. After negative aspiration, 1ml of 2% lidocaine was injected at each of the levels and radiofrequency denervation carried out using 80 degrees Celsius for 90 seconds. The needles were then rotated 90 degrees and a second ablation was performed at 80 degrees Celsius for 90 seconds. After ablation, a mixture of 10 mg dexamethasone with 0.5% bupivacaine 5 mL was injected in equal amounts among the sites (1 mL per site). At the end of the procedure the needles were withdrawn and Band-Aids were applied for a dressing. This procedure is expected to denervate the bilateral L4-5 and L5-S1 facet joints. Post Procedure: Patient was taken to the recovery and monitored. The patient was provided a Pain Log to continue to record the patient's response to the target- specific procedure prior to the patient's follow-up visit with the referring physician. Patient was stable upon discharge. Detailed post procedure instructions were provided. Patient was asked to call in the event of worsening pain, fever, weakness, numbness or bladder or bowel incontinence. Complications: None
--- NOTE | 2024-01-05 11:41 | PC.NURSE ---
Late Entry: Procedure Heart Rhythm This RN observed that the patient in Afib rate 70s-80s. Noted LBBB on approximately every 20-25 heart beats. Also noted by this RN occasional wide QRS complex on heart monitor. Remaining vital signs WNL for the patient. Cardiac Rhythm strips printed and Dr. Spencer made aware with verbal acknowledgement received by this RN. Rhythm strips scanned into patient's chart. Patient stated that she is seeing Dr. Gongora at [facility] next week. Patient given copy of heart Rhythm strips to bring to her appointment with Cardiology. Patient verbalized understanding that if she has cardiac symptoms to return to the ER.
== END 2024-01-05 11:36 | disposition home or self-care (01) ==
LOC: RAD 10:03
PROVIDERS: PCP Physician Assistant Medical; Referring Provider Anesthesiology; Visit Provider Anesthesiology
DX: M47.816 Spondylosis without myelopathy or radiculopathy, lumbar region (principal); E11.9 Type 2 diabetes mellitus without complications; Z79.84 Long term (current) use of oral hypoglycemic drugs
CPT/HCPCS: 64635; 64636; 82962; 99152; 99153; J1100; J2250

== ENCOUNTER 2024-07-04 11:44 | Outpatient (CLI) | payer MEDICARE, MEDICAID, SELFPAY ==
[2024-07-04] VITALS (8 sets, daily range): BP systolic 122–159; BP diastolic 65–81; PULSE 74–88; RESP 14–18; TEMP 36.5; O2SAT 95–100
--- NOTE | 2024-07-04 11:46 | DI.RAD.S_ITS ---
PROCEDURE: PAIN L INTERLAMINAR/CAUDAL INJ INDICATIONS: L4/5 TL MARCO A COMPARISON: [facility], , PAIN L INTERLAMINAR/CAUDAL INJ, 07/07/2023, 14:09. FINDINGS/IMPRESSION: Fluoroscopic spot filming was performed to verify placement of spinal needle at the L4-5 level, as labeled on the films. Appropriate location of the needle tip was confirmed by injection of iodinated contrast. Approved by: Miller Hernandez M.D. on 07/05/2024 at 20:28
[2024-07-04] MEDS: MIDAZOLAM 2 MG/2 ML VIAL 1 MG IV (13:15)
[2024-07-04] MEDS: BETAMETHASONE 30 MG/5 ML MDV 12 MG INJ (13:22)
[2024-07-04] MEDS: iopamidoL 15 ML VIAL 3 ML INJ (13:22)
[2024-07-04] MEDS: BUPIVACAINE 0.25% (PF) VIAL 2 ML INJ (13:22)
[2024-07-04] MEDS: DEXAMETHASONE 10 MG/ML VIAL INJ (13:22)
--- NOTE | 2024-07-04 13:34 | P.PCN_ITS ---
Date/Time/Diagnoses Date of procedure: 07/04/24 Time of procedure: 13:34 Pre-procedure diagnosis: 1. HNP WITH RADICULAR FEATURES, 2. MULTILEVEL CENTRAL STENOSIS, Post-procedure diagnosis: same Procedure Notes Procedure: 1. FLUOROSCOPICALLY GUIDED CONTRAST CONTROLLED INTERLAMINAR EPIDURAL STEROID INJECTION -L4/5 Indications: Josefa is referred by RUBINA Santiago for treatment of Bilateral Foraminal Stenosis R>L LE symptoms. Physician: Jignesh Nova Total Fluoroscopy time (seconds): 10 Total sedation minutes: 14 Complications: none Procedure in detail & Post-procedure care: FINDINGS Multilevel Central Spinal Stenosis with Nerve Root Compression DESCRIPTION OF PROCEDURE Fluoroscopically guided, contrast-controlled L4/5 translaminar epidural steroid injection. Following review of allergy and review of potential side effects and complications, including, but not necessarily limited to, infection, allergic reaction, local tissue breakdown, temporary as well as permanent nerve injury, paralysis, stroke and possible , the patient indicated that the patient understood and agreed to proceed. An informed consent document was signed by the patient, witnessed by a nurse, and placed in the patient's chart. Additionally, other treatment options including modalities, medications, and physical therapy were reviewed with the patient. After review of previous anaesthesic history and IV conscious sedation the patient was deemed safe to proceed with today?s procedure with IV conscious sedation as ASA class II designation. Safety time-out was performed to confirm patient ID, procedure to be performed and site of procedure. IV sedation was accomplished with a combination of 1mg of Versed was administered by the RN after DO order, titrated to patient comfort during the course of the procedure while the patient remained responsive to all verbal commands In the prone position, following sterile prep and drape of the lumbar region, the L4/5 translaminar space was identified fluoroscopically. The skin was anesthetized via a 25-gauge, 1.5inch needle with 1% lidocaine solution. At this point, a 22-gauge short bevel spinal needle was atraumatically introduced and a dvanced under fluoroscopic guidance into the region of the L4/5 translaminar space. Depth was confirmed on lateral view. Radiological data, including multiple fluoroscopic views of the lumbar spine, reveal a spinal needle at the L4/5 translaminar space. Lateral views then show placement of the needle in the epidural space. Subsequent views show contrast material flowing superiorly and inferiorly in the epidural space. No vascular or intrathecal uptake is observed. At this point, using loss of resistance technique with saline and air, the epidural space was entered. This was confirmed following negative aspiration with injection of approximately 1.5cc of Isovue 200, showing excellent epidural flow without vascular or intrathecal uptake. At this point, 1cc of 1% lidocaine solution combined with 3cc or 10mg of dexamethasone and 12mg betamethasone was injected without incident. The patient tolerated the procedure well without signs or symptoms of complications prior to transfer to the recovery area continued monitoring without incident. The patient was then transferred to the recovery area where they were observed for an appropriate period of time after the injection. The patient reported a VAS score of 6 prior to the procedure and a post- procedure VAS of 0. POST OP INSTRUCTIONS The patient was provided a Pain Log to continue to record their response to the target-specific procedure prior to follow-up visit with their referring physician. Additionally, specific post-injection care instructions and a contact number to our office were provided if concerns arise regarding possible complications associated with the procedure are suspected.
== END 2024-07-04 13:47 | disposition home or self-care (01) ==
PROVIDERS: PCP Physician Assistant Medical; Referring Provider Physical Medicine & Rehabilitation; Visit Provider Physical Medicine & Rehabilitation
DX: M51.16 Intervertebral disc disorders with radiculopathy, lumbar region (principal); M48.061 Spinal stenosis, lumbar region without neurogenic claudication
CPT/HCPCS: 62323; 99152; J0702; J1100; J2250; J3490

== ENCOUNTER → 2024-10-18 07:43 | Outpatient (CLI) | payer MEDICARE, MEDICAID, SELFPAY ==
--- NOTE | 2024-10-18 07:46 | DI.ECHO.S_ITS ---
[place] [facility]---------+ [facility] : : [address] : : [place] : : [id number] : : Phone: [phone] Echocardiogram Report + + :Name: RIKKI ALAN Study Date: 10/18/2024 Height: 63 in : :Hospital ReadingLocation: Weight: 290 lb : : Gender: Female BSA: 2.3 m2 : :: 1950 Age: 73 yrs BP: 143/103 mmHg: :Reason For Study: AORTIC VALVE STENOSIS : :Ordering Physician: NAGI CASTILLO Performed By: Edvin Burns : :Referring: NAGI CASTILLO : + + Interpretation Summary TDS - BODY HABITUS. 1. The left ventricular contractility is normal. Estimate ejection fraction is greater than 60% with no segmental wall motion abnormalities. No LVH. Unable to comment on diastolic function. 2. The right ventricle contractility is normal. 3. Biatrial enlargement. All other cardiac chambers are of normal size. 4. Moderate to severe aortic valvular stenosis with peak gradient of 3.15 m/s. Mean gradient of 26.3 mmHg. Dimensionless index of 0.27. 5. Mild tricuspid regurgitation with estimated pulm systolic artery pressures of 51 mmHg. 6. No obvious intracardiac shunts. 7. No intracardiac masses nor thrombi. 8. No hemodynamically significant pericardial effusion. 9. Normal right-sided filling pressures. Conclusion: Normal biventricular systolic function with moderate to severe aortic valvular stenosis. When compared with previous echocardiogram, there is a slight increase in the aortic valvular stenosis. Moderately elevated pulm systolic artery pressures are now present. Procedure: A two-dimensional transthoracic echocardiogram with color flow and Doppler was performed. The study quality was technically difficult. A contrast injection of Definity was performed to improve assessment of LV function. Comparison is made with the echocardiogram of 12/17/2023. The patient was in atrial fibrillation with heart rates between 69-92 bpm during the exam. Left Ventricle: The left ventricle is normal in size. There is normal left ventricular wall thickness. There is no ventricular septal defect visualized. The ejection fraction is estimated to be 60-65%. There are no focal wall motion abnormalities. Diastolic function could not be accurately assessed due to atrial fibrillation. Right Ventricle: The right ventricle is normal in size and function. Atria: The left atrium is severely dilated. The right atrium is mildly dilated. There is no Doppler evidence for an interatrial shunt. Mitral Valve: There is mild mitral annular calcification. The mitral valve leaflets appear normal. There is no evidence of stenosis, fluttering, or prolapse. There is trace mitral regurgitation. Aortic Valve: The aortic valve is trileaflet. The aortic valve is moderately calcified. There is moderate to severe aortic stenosis. The peak aortic velocity is 3.15 m/sec. The aortic valve mean gradient is 26.3 mmHg. The calculated aortic valve area is 0.8 cm2. No aortic regurgitation is present. Tricuspid Valve: The tricuspid valve leaflets are thin and pliable. There is mild tricuspid regurgitation. The right ventricular systolic pressure is estimated to be at least 51 mmHg based on an estimated right atrial pressure of 8 mm Hg. Pulmonic Valve: The pulmonic valve leaflets are thin and pliable; valve motion is normal. There is no pulmonic valvular regurgitation. Great Vessels: The aortic root is normal size. The dimensions of the ascending aorta are normal. The pulmonary artery is normal size. The IVC is dilated (diameter is greater than 2.1 cm) yet it collapses greater than 50% with a sniff. This suggests a right atrial pressure of 8 mm Hg. Pericardium/ Pleura There is no pericardial effusion. There is no pleural effusion. MMode/2D Measurements & Calculations LVIDd: 4.4 cm LVOT diam: 1.9 cm LVIDs: 3.2 cm Ao root diam: 2.8 cm FS: 28.2 % asc Aorta Diam: 3.2 cm EPSS: 0.58 cm IVSd: 1.0 cm LVPWd: 0.89 cm LV urbina. diameter/BSA (cm/m^2): 2.0 LV sys. diameter/BSA (cm/m^2): 1.4 LA A2 area: 24.0 cm2 RA long axis: 5.7 cm LA A4 area: 36.3 cm2 RA area: 17.9 cm2 LA length (vol): 7.6 cm RA vol: 47.6 ml LA vol: 97.0 ml RA : 21.0 ml/m2 LA vol index: 42.9 ml/m2 IVC diam: 2.0 cm RVD1 (basal): 3.9 cm RVD2 (mid): 3.1 cm TAPSE: 2.0 cm Doppler Measurements & Calculations Ao V2 max: 314.5 cm/sec LVOT Max Isak: 81.3 cm/sec Ao V2 mean: 246.0 cm/sec LV V1 max P.6 mmHg Ao max P.6 mmHg LV V1 VTI: 22.5 cm Ao mean P.3 mmHg NAHOMI(I,D): 0.80 cm2 Ao V2 VTI: 83.3 cm NAHOMI(V,D): 0.77 cm2 sev ratio: 0.27 NAHOMI indexed to BSA (cm^2/m^2): 0.36 MV E max isak: 129.9 cm/sec TR max isak: 329.6 cm/sec MV A max isak: 29.9 cm/sec TR max P.5 mmHg MV E/A: 4.4 PA V2 max: 96.1 cm/sec Med Peak E' Isak: 8.5 cm/sec PA V2 mean: 59.0 cm/sec E/E' med: 15.4 PA mean P.7 mmHg Lat Peak E' Isak: 5.8 cm/sec PA pr(Accel): 55.0 mmHg E/E' lat: 22.5 E/e' average: 18.9 MV dec time: 0.15 sec SV(LVOT): 67.0 ml Reading Physician:COLT
== END ==
PROVIDERS: PCP Physician Assistant Medical; Referring Provider Internal Medicine; Visit Provider Internal Medicine
DX: I08.2 Rheumatic disorders of both aortic and tricuspid valves (principal)
CPT/HCPCS: C8929; Q9957

== ENCOUNTER → 2025-05-08 10:01 | Outpatient (CLI) | payer MEDICARE, MEDICAID, SELFPAY ==
--- NOTE | 2025-05-08 10:03 | DI.ECHO.S_ITS ---
[place] [facility]---------+ [facility] : : [address] : : [place] : : [id number] : : Phone: [phone] Echocardiogram Report + + :Name: RIKKI ALAN Study Date: 05/08/2025 Height: 63 in : :[facility] ReadingLocation: Weight: 286 lb : : Gender: Female BSA: 2.3 m2 : :: 1950 Age: 74 yrs BP: 162/90 mmHg: :Reason For Study: Aortic stenosis : :Ordering Physician: NAGI CASTILLO Performed By: Jamie Hill : :Referring: NAGI CASTILLO : + + Interpretation Summary - Normal LV contractility with EF > 55% and no WMA. Borderline cLVH. Unable to comment on diastolic function. - Normal RV contractility. - Mild ELVIS. - Mild MR. - Moderate with peak velocity 3.1 m/sec and mean gradient 24 mmHg. Dimensionless index 0.34. - Mild TR with estimated PSAP 39 mmHg. - No obvious intracardiac shunts. - No obvious intracardiac masses/thrombi. - No hemodynamically significant pericardial effusion. Conclusion: Normal biventricular systolic function with mild to modeerate valvular heart disease. No significant changes when compared with prior study. Procedure: A two-dimensional transthoracic echocardiogram with color flow and Doppler was performed. The study quality was technically adequate. Comparison is made with the echocardiogram of 10/18/2024. The heart rate ranged between 75-90 bpm during the study. Left Ventricle: The left ventricle is normal in size. Left ventricular wall thickness is borderline increased. Left ventricular systolic function is normal. The ejection fraction is estimated to be 55-60%. There are no focal wall motion abnormalities. Diastolic function is indeterminate. Right Ventricle: The right ventricle is normal in size and function. Atria: The left atrium is mildly dilated. The right atrium is mildly dilated. There is no Doppler evidence for an interatrial shunt. Mitral Valve: There is mild mitral annular calcification. The mitral valve leaflets appear mildly thickened. There is no mitral valve stenosis. There is mild mitral regurgitation. Aortic Valve: The aortic valve is trileaflet. Heavy calcification on the non-coronary cusp with limited mobility. There is moderate aortic stenosis. The calculated aortic valve area is 1.1 cm2. The peak aortic velocity is 3.1 m/sec. The aortic valve mean gradient is 24.2 mmHg. sev ratio: 0.34. There is trace aortic regurgitation. Tricuspid Valve: The tricuspid valve is not well visualized, but is grossly normal. There is mild tricuspid regurgitation. The right ventricular systolic pressure is estimated to be at least 39 mmHg based on an estimated right atrial pressure of 3 mm Hg. Pulmonic Valve: The pulmonic valve is not well seen, but is grossly normal. There is trace pulmonic regurgitation. Great Vessels: The aortic root is normal size. There is aortic root sclerosis/calcification. The ascending aorta is normal in size. The aortic arch could not be visualized. The pulmonary is not well visualized. The IVC is of normal diameter and collapses greater than 50% with a sniff. This suggests a low right atrial pressure of 3 mm Hg. Pericardium/ Pleura There is no pericardial effusion. MMode/2D Measurements & Calculations LVIDd: 4.7 cm LVOT diam: 2.1 cm LVIDs: 3.1 cm Ao root diam: 2.9 cm FS: 32.7 % asc Aorta Diam: 3.3 cm EPSS: 0.43 cm IVSd: 1.1 cm LVPWd: 1.00 cm LV urbina. diameter/BSA (cm/m^2): 2.1 LV sys. diameter/BSA (cm/m^2): 1.4 LA A2 area: 24.8 cm2 RA long axis: 6.1 cm LA A4 area: 24.8 cm2 RA area: 17.7 cm2 LA length (vol): 6.8 cm RA vol: 43.6 ml LA vol: 76.8 ml RA : 19.4 ml/m2 LA vol index: 34.1 ml/m2 IVC diam: 2.2 cm RVD1 (basal): 2.9 cm RVD2 (mid): 2.4 cm TAPSE: 1.8 cm Doppler Measurements & Calculations Ao V2 max: 309.0 cm/sec LVOT Max Isak: 100.5 cm/sec Ao V2 mean: 237.0 cm/sec LV V1 max P.0 mmHg Ao max P.2 mmHg LV V1 VTI: 23.9 cm Ao mean P.2 mmHg NAHOMI(I,D): 1.2 cm2 Ao V2 VTI: 70.4 cm NAHOMI(V,D): 1.1 cm2 sev ratio: 0.34 NAHOMI indexed to BSA (cm^2/m^2): 0.52 AI P1/2t: 612.4 msec AI dec slope: 187.3 cm/sec2 MV E max isak: 133.0 cm/sec TR max isak: 299.5 cm/sec MV A max isak: 44.9 cm/sec TR max P.9 mmHg MV E/A: 3.0 Med Peak E' Isak: 8.8 cm/sec E/E' med: 15.1 Lat Peak E' Isak: 9.0 cm/sec E/E' lat: 14.7 E/e' average: 14.9 MV dec time: 0.15 sec SV(LVOT): 81.8 ml Reading Physician:COLT
== END ==
LOC: ECHO 10:03
PROVIDERS: PCP Family Medicine; Referring Provider Internal Medicine; Visit Provider Internal Medicine
DX: I08.3 Combined rheumatic disorders of mitral, aortic and tricuspid valves (principal)
CPT/HCPCS: 93306